=== PATIENT | male | born 2000 | race Caucasian/White ===

== ENCOUNTER 2022-02-09 13:46 | Inpatient (IN) | payer MEDICAID ==
[~2022-02-09] VITALS: Ht 162.6 cm; Wt 67.6 kg
[2022-02-09 20:45] VITALS: BP 130/79
[2022-02-09] MEDS ORDERED: HALOPERIDOL 5 MG TABLET PO PRN (21:45)
[2022-02-09] MEDS ORDERED: LORazepam 2 MG TABLET PO PRN (21:45)
[2022-02-09] MEDS ORDERED: DEXTROSE 50%-WATER 25 GM/50 ML SYRINGE IVP PRN (22:00)
[2022-02-09] MEDS ORDERED: MAGNESIUM HYDROXIDE SUSPENSION 30 ML UDCUP PO PRN (22:15)
[2022-02-09] MEDS ORDERED: ONDANSETRON HCL 4 MG TABLET PO PRN (22:15)
[2022-02-09] MEDS ORDERED: PETROLATUM,WHITE 28 GM JELLY TP PRN (22:15)
[2022-02-09] MEDS ORDERED: DOCUSATE SODIUM 100 MG CAPSULE PO PRN (22:15)
[2022-02-09] MEDS ORDERED: ACETAMINOPHEN 325 MG TABLET PO PRN (22:15)
[2022-02-09] MEDS ORDERED: MAG HYDROX/AL HYDROX/SIMETH ES 30 ML SUSPENSION UDCUP PO PRN (22:15)
[2022-02-09] MEDS ORDERED: GuaiFENesin/D-METHORPHAN [SUGAR-FREE] 200-20MG/10 ML SYRUP UDCUP PO PRN (22:15)
[2022-02-09] MEDS ORDERED: LOPERAMIDE HCL 2 MG CAPSULE PO PRN (22:15)
[2022-02-09] MEDS ORDERED: NICOTINE 14 MG/24 HOUR PATCH TD PRN (22:15)
[2022-02-09] MEDS ORDERED: ALBUTEROL SULFATE HFA 90 MCG/PUFF 8 GM INHALER IH PRN (22:15)
[2022-02-09] MEDS ORDERED: IBUPROFEN 400 MG TABLET PO PRN (22:15)
[2022-02-09] MEDS ORDERED: CloNIDine HCL 0.1 MG TABLET PO PRN (22:15)
[2022-02-09] MEDS: INSULIN LISPRO 100 UNITS/ML SQ PRN (22:36)
[2022-02-09] MEDS: ZOLPIDEM TARTRATE 10 MG TABLET PO PRN (23:52)
[2022-02-10 02:36] LABS: COVID AG,FIA SOURCE NASAL SWAB
[2022-02-10] MEDS: INSULIN LISPRO 100 UNITS/ML SQ PRN ×4 (07:05→21:40)
[2022-02-10 07:08] LABS: BASOPHILS % (AUTO) 0.7 % (0.0-2.0); EOSINOPHILS % (AUTO) 5.2 % (1.0-6.0); HEMATOCRIT 40.1 % (41-53); HEMOGLOBIN 13.9 g/dL (13.5-17.5); LYMPHOCYTES # (AUTO) 2.5 K/uL (1.0-4.8); LYMPHOCYTES % (AUTO) 35.9 % (22.0-44.0); MEAN CORPUSCULAR HEMOGLOBIN 30.5 pg (26.0-34.0); MEAN CORPUSCULAR HGB CONC 34.8 G/dL (31.0-37.0); MEAN CORPUSCULAR VOLUME 88 fL (80-100); MONOCYTES # (AUTO) 0.7 K/uL (0.1-1.0); MONOCYTES % (AUTO) 9.6 % (2.0-9.0); NEUTROPHILS # (AUTO) 3.3 K/uL (1.8-7.7); NEUTROPHILS % (AUTO) 48.6 % (40.0-70.0); PLATELET COUNT (AUTO) 294 K/uL (150-450); RED BLOOD CELL COUNT(AUTO) 4.56 MIL/uL (4.50-5.90); RED CELL DISTRIBUTION WIDTH 12.1 % (11.5-14.5)
[2022-02-10 07:16] LABS: HEMOGLOBIN A1C 5.7 % (3.8-5.6)
[2022-02-10 07:21] LABS: GLUCOMETER DEV NAME(LOC) 3E.I 2; GLUCOSE,POINT OF CARE 344 MG/DL (70-110)
[2022-02-10 07:37] LABS: ALANINE AMINOTRANSFERASE 30 U/L (12-78); ALBUMIN 3.5 g/dL (3.4-5.0); ALKALINE PHOSPHATASE 97 U/L (46-116); ANION GAP 5 mmol/L (8-16); ASPARTATE AMINOTRANSFERASE 12 U/L (15-37); BILIRUBIN,TOTAL 1.6 mg/dL (0.1-1.0); CARBON DIOXIDE 29 mmol/L (22-29); CHLORIDE 98 mmol/L (98-107); CHOL/HDL RATIO 2.8 (4.2-7.3); CHOLESTEROL 153 mg/dL (131-200); CREATININE 0.94 mg/dL (0.60-1.30); GLOMERULAR FILTR. RATE CALC > 60 mL/min (>60); GLUCOSE,RANDOM 302 mg/dL (70-110); HDL CHOLESTEROL 54 mg/dL (40-60); LDL CHOL (CALC.) 83 mg/dL (0-130); POTASSIUM 4.2 mmol/L (3.5-5.1); SODIUM SERUM 132 mmol/L (136-145); TOTAL PROTEIN, SERUM 6.9 g/dL (6.4-8.2); TRIGLYCERIDES 81 mg/dL (15-150); UREA NITROGEN, BLOOD 14 mg/dL (7-18)
[2022-02-10 08:00] VITALS: BP 98/56
[2022-02-10] MEDS: ESCITALOPRAM OXALATE 10 MG TABLET PO SCH (11:12)
[2022-02-10 12:06] LABS: GLUCOMETER DEV NAME(LOC) 3E.I 2; GLUCOSE,POINT OF CARE 302 MG/DL (70-110)
[2022-02-10 16:00] VITALS: BP 113/61
[2022-02-10 17:01] LABS: GLUCOMETER DEV NAME(LOC) 3E.I 2; GLUCOSE,POINT OF CARE 335 MG/DL (70-110)
[2022-02-10] MEDS: ZOLPIDEM TARTRATE 10 MG TABLET PO PRN (21:47)
[2022-02-10 23:36] LABS: GLUCOMETER DEV NAME(LOC) 3E.I 2; GLUCOSE,POINT OF CARE 414 MG/DL (70-110)
[2022-02-11] MEDS ORDERED: DEXTROSE 50%-WATER 25 GM/50 ML SYRINGE IVP PRN
[2022-02-11 06:36] LABS: GLUCOMETER DEV NAME(LOC) 3E.I 2; GLUCOSE,POINT OF CARE 308 MG/DL (70-110)
[2022-02-11] MEDS: INSULIN LISPRO 100 UNITS/ML SQ PRN ×4 (06:43→20:49)
[2022-02-11] MEDS: ESCITALOPRAM OXALATE 10 MG TABLET PO SCH (08:36)
[2022-02-11 09:30] VITALS: BP 108/65
[2022-02-11 11:22] LABS: GLUCOMETER DEV NAME(LOC) 3E.I 2; GLUCOSE,POINT OF CARE 270 MG/DL (70-110)
[2022-02-11 16:00] VITALS: BP 107/70
[2022-02-11 16:47] LABS: GLUCOMETER DEV NAME(LOC) 3E.I 2; GLUCOSE,POINT OF CARE 268 MG/DL (70-110)
[2022-02-11] MEDS: ZOLPIDEM TARTRATE 10 MG TABLET PO PRN (20:37)
[2022-02-11 20:56] LABS: GLUCOMETER DEV NAME(LOC) 3E.I 2; GLUCOSE,POINT OF CARE 392 MG/DL (70-110)
[2022-02-11] MEDS: INSULIN GLARGINE,HUM.REC.ANLOG 100 UNITS/ML SQ SCH (21:22)
[2022-02-12 05:36] LABS: GLUCOMETER DEV NAME(LOC) 3E.I 2; GLUCOSE,POINT OF CARE 101 MG/DL (70-110)
[2022-02-12] MEDS ORDERED: DEXTROSE 50%-WATER 25 GM/50 ML SYRINGE IVP PRN (06:45)
[2022-02-12 09:22] VITALS: BP 96/63
[2022-02-12] MEDS: ESCITALOPRAM OXALATE 10 MG TABLET PO SCH (09:23)
[2022-02-12] MEDS: INSULIN LISPRO 100 UNITS/ML SQ PRN ×3 (12:11→21:28)
[2022-02-12 12:22] LABS: GLUCOMETER DEV NAME(LOC) 3E.I 2; GLUCOSE,POINT OF CARE 356 MG/DL (70-110)
[2022-02-12 16:04] VITALS: BP 96/64
[2022-02-12 17:01] LABS: GLUCOMETER DEV NAME(LOC) 3E.I 2; GLUCOSE,POINT OF CARE 386 MG/DL (70-110)
[2022-02-12 17:04] VITALS: BP 94/68
[2022-02-12 21:21] LABS: GLUCOMETER DEV NAME(LOC) 3E.I 2; GLUCOSE,POINT OF CARE 315 MG/DL (70-110)
[2022-02-12] MEDS: INSULIN GLARGINE,HUM.REC.ANLOG 100 UNITS/ML SQ SCH (21:25)
[2022-02-12] MEDS: ZOLPIDEM TARTRATE 10 MG TABLET PO PRN (21:41)
[2022-02-13 06:06] LABS: GLUCOMETER DEV NAME(LOC) 3E.I 2; GLUCOSE,POINT OF CARE 39 MG/DL (70-110)
[2022-02-13] MEDS ORDERED: GLUCAGON,HUMAN RECOMBINANT 1 MG VIAL IM ONE (06:30)
[2022-02-13] MEDS ORDERED: GLUCAGON,HUMAN RECOMBINANT 1 MG VIAL ONE (06:35)
[2022-02-13 06:41] LABS: GLUCOMETER DEV NAME(LOC) 3E.I 2; GLUCOSE,POINT OF CARE 57 MG/DL (70-110)
[2022-02-13 06:43] LABS: COVID AG,FIA SOURCE NASAL SWAB
[2022-02-13 07:51] LABS: GLUCOMETER DEV NAME(LOC) 3E.I 2; GLUCOSE,POINT OF CARE 279 MG/DL (70-110)
[2022-02-13] MEDS: ESCITALOPRAM OXALATE 10 MG TABLET PO SCH (09:08)
[2022-02-13 09:25] VITALS: BP 96/60
[2022-02-13 11:47] LABS: GLUCOMETER DEV NAME(LOC) 3E.I 2; GLUCOSE,POINT OF CARE 135 MG/DL (70-110)
[2022-02-13] MEDS ORDERED: INSULIN LISPRO 100 UNITS/ML SQ ONE ×2 (17:15→20:30)
[2022-02-13] MEDS ORDERED: INSULIN GLARGINE,HUM.REC.ANLOG 100 UNITS/ML SQ ONE (17:15)
[2022-02-13 17:21] LABS: GLUCOMETER DEV NAME(LOC) 3E.I 2; GLUCOSE,POINT OF CARE 481 MG/DL (70-110)
[2022-02-13 20:16] LABS: GLUCOMETER DEV NAME(LOC) 3E.I 2; GLUCOSE,POINT OF CARE 446 MG/DL (70-110)
[2022-02-13] MEDS: ZOLPIDEM TARTRATE 10 MG TABLET PO PRN (20:43)
[2022-02-13] MEDS ORDERED: INSULIN GLARGINE,HUM.REC.ANLOG 100 UNITS/ML SQ SCH (21:00)
[2022-02-14 06:26] LABS: GLUCOMETER DEV NAME(LOC) 3E.C; GLUCOSE,POINT OF CARE 105 MG/DL (70-110)
[2022-02-14 09:00] VITALS: BP 96/62
[2022-02-14] MEDS: ESCITALOPRAM OXALATE 10 MG TABLET PO SCH (09:08)
[2022-02-14] MEDS ORDERED: ESCI10 PO (09:31)
[2022-02-14 12:00] LABS: GLUCOMETER DEV NAME(LOC) 3E.I 2; GLUCOSE,POINT OF CARE 69 MG/DL (70-110)
[2022-02-14] MEDS: INSULIN LISPRO 100 UNITS/ML SQ PRN (12:13)
== END 2022-02-14 11:30 | disposition home or self-care (01) | DRG 751 ==
LOC: 3EI 20:15
PROVIDERS: ADMIT Psychiatry & Neurology Child & Adolescent Psychiatry; ATTEND Psychiatry & Neurology Child & Adolescent Psychiatry
DX: F33.2 Major depressive disorder, recurrent severe without psychotic features (principal); E43 Unspecified severe protein-calorie malnutrition; E87.1 Hypo-osmolality and hyponatremia; Z20.822 Contact with and (suspected) exposure to COVID-19; E16.2 Hypoglycemia, unspecified; R73.9 Hyperglycemia, unspecified; Z68.25 Body mass index [BMI] 25.0-25.9, adult; Z79.899 Other long term (current) drug therapy
CPT/HCPCS: 80053; 80061; 82962; 83036; 84443; 85025; 87081; J1610; J1815

== ENCOUNTER 2022-09-28 15:39 | Inpatient (IN) | payer MEDICAID, OTHER ==
[~2022-09-28] VITALS: Ht 165.1 cm; Wt 74.8 kg
[~2022-09-28 15:39] MED LIST: ESCI10 PO
[2022-09-28 17:25] LABS: COVID AG,FIA SOURCE NASOPHARYNGEAL
[2022-09-28] MEDS ORDERED: HALOPERIDOL 5 MG TABLET PO PRN (19:15)
[2022-09-28] MEDS ORDERED: LORazepam 2 MG TABLET PO PRN (19:15)
[2022-09-28 19:30] LABS: BASOPHILS % (AUTO) 0.6 % (0.0-2.0); EOSINOPHILS % (AUTO) 2.3 % (1.0-6.0); HEMATOCRIT 42.8 % (41-53); HEMOGLOBIN 14.7 g/dL (13.5-17.5); LYMPHOCYTES # (AUTO) 2.1 K/uL (1.0-4.8); LYMPHOCYTES % (AUTO) 28.8 % (22.0-44.0); MEAN CORPUSCULAR HEMOGLOBIN 30.2 pg (26.0-34.0); MEAN CORPUSCULAR HGB CONC 34.3 G/dL (31.0-37.0); MEAN CORPUSCULAR VOLUME 88 fL (80-100); MONOCYTES # (AUTO) 0.5 K/uL (0.1-1.0); MONOCYTES % (AUTO) 7.2 % (2.0-9.0); NEUTROPHILS # (AUTO) 4.4 K/uL (1.8-7.7); NEUTROPHILS % (AUTO) 61.1 % (40.0-70.0); PLATELET COUNT (AUTO) 311 K/uL (150-450); RED BLOOD CELL COUNT(AUTO) 4.87 MIL/uL (4.50-5.90); RED CELL DISTRIBUTION WIDTH 12.4 % (11.5-14.5)
[2022-09-28 19:37] LABS: ANION GAP 11 mmol/L (8-16); CARBON DIOXIDE 27 mmol/L (22-29); CHLORIDE 101 mmol/L (98-107); CREATININE 0.77 mg/dL (0.60-1.30); GLOMERULAR FILTR. RATE CALC > 60 mL/min (>60); GLUCOSE,RANDOM 149 mg/dL (70-110); POTASSIUM 3.8 mmol/L (3.5-5.1); SODIUM SERUM 139 mmol/L (136-145)
[2022-09-28 19:43] LABS: ALANINE AMINOTRANSFERASE 18 U/L (12-78); ALKALINE PHOSPHATASE 90 U/L (46-116); ASPARTATE AMINOTRANSFERASE 10 U/L (15-37); BILIRUBIN,TOTAL 1.7 mg/dL (0.1-1.0); TOTAL PROTEIN, SERUM 7.5 g/dL (6.4-8.2)
[2022-09-28 23:55] VITALS: RESP 18
[2022-09-28 23:59] VITALS: RESP 18
[2022-09-29 00:46] LABS: GLUCOMETER DEV NAME(LOC) 3E.C; GLUCOSE,POINT OF CARE 325 MG/DL (70-110)
[2022-09-29] MEDS ORDERED: DEXTROSE 50%-WATER 25 GM/50 ML SYRINGE IVP PRN (02:15)
[2022-09-29] MEDS ORDERED: GLUCAGON,HUMAN RECOMBINANT 1 MG VIAL IM PRN (02:45)
[2022-09-29] MEDS: INSULIN LISPRO 100 UNITS/ML SQ SCH ×3 (07:01→17:28)
[2022-09-29] MEDS: INSULIN LISPRO 100 UNITS/ML SQ PRN ×4 (07:02→21:03)
[2022-09-29 07:21] LABS: GLUCOMETER DEV NAME(LOC) 3E.C; GLUCOSE,POINT OF CARE 170 MG/DL (70-110)
[2022-09-29 08:46] LABS: GLUCOMETER DEV NAME(LOC) 3E.C; GLUCOSE,POINT OF CARE 92 MG/DL (70-110)
[2022-09-29] MEDS ORDERED: DOCUSATE SODIUM 100 MG CAPSULE PO PRN (09:00)
[2022-09-29] MEDS ORDERED: LOPERAMIDE HCL 2 MG CAPSULE PO PRN (09:00)
[2022-09-29] MEDS ORDERED: MAGNESIUM HYDROXIDE SUSPENSION 30 ML UDCUP PO PRN (09:00)
[2022-09-29] MEDS ORDERED: BENZOCAINE/MENTHOL LOZENGE PO PRN (09:00)
[2022-09-29] MEDS ORDERED: ALBUTEROL SULFATE HFA 90 MCG/PUFF 8 GM INHALER IH PRN (09:00)
[2022-09-29] MEDS ORDERED: IBUPROFEN 600 MG TABLET PO PRN (09:00)
[2022-09-29] MEDS ORDERED: CloNIDine HCL 0.1 MG TABLET PO PRN (09:00)
[2022-09-29] MEDS ORDERED: ACETAMINOPHEN 325 MG TABLET PO PRN (09:00)
[2022-09-29] MEDS ORDERED: PETROLATUM,WHITE 28 GM JELLY TP PRN (09:00)
[2022-09-29] MEDS ORDERED: ONDANSETRON HCL 4 MG TABLET PO PRN (09:00)
[2022-09-29] MEDS ORDERED: MAG HYDROX/AL HYDROX/SIMETH ES 30 ML SUSPENSION UDCUP PO PRN (09:00)
[2022-09-29] MEDS ORDERED: BACITRACIN 28 GM OINTMENT TP PRN (09:00)
[2022-09-29] MEDS ORDERED: OMEPRAZOLE 20 MG CAPSULE PO PRN (09:00)
[2022-09-29 09:21] VITALS: BP 115/56; PULSE 72; RESP 18; TEMP 98.5
[2022-09-29 11:31] LABS: GLUCOMETER DEV NAME(LOC) 3E.C; GLUCOSE,POINT OF CARE 312 MG/DL (70-110)
[2022-09-29] MEDS: CITALOPRAM HYDROBROMIDE 20 MG TABLET PO SCH (12:35)
[2022-09-29 17:36] LABS: GLUCOMETER DEV NAME(LOC) 3E.C; GLUCOSE,POINT OF CARE 323 MG/DL (70-110)
[2022-09-29 20:29] VITALS: BP 155/66; PULSE 73; RESP 19; TEMP 98.2
[2022-09-29 20:47] LABS: GLUCOMETER DEV NAME(LOC) 3E.C; GLUCOSE,POINT OF CARE 233 MG/DL (70-110)
[2022-09-29] MEDS: INSULIN GLARGINE,HUM.REC.ANLOG 100 UNITS/ML SQ SCH (21:00)
[2022-09-29] MEDS: ZOLPIDEM TARTRATE 10 MG TABLET PO PRN (23:29)
[2022-09-30] MEDS: INSULIN LISPRO 100 UNITS/ML SQ SCH ×3 (06:35→17:34)
[2022-09-30] MEDS: INSULIN LISPRO 100 UNITS/ML SQ PRN ×4 (06:38→22:20)
[2022-09-30 07:06] LABS: GLUCOMETER DEV NAME(LOC) 3E.C; GLUCOSE,POINT OF CARE 243 MG/DL (70-110)
[2022-09-30] MEDS: CITALOPRAM HYDROBROMIDE 20 MG TABLET PO SCH (09:20)
[2022-09-30 10:05] VITALS: BP 120/87; PULSE 94; RESP 18; TEMP 96.8
[2022-09-30 10:54] VITALS: BP 132/74; PULSE 87; RESP 19; TEMP 97.6
[2022-09-30 11:51] LABS: GLUCOMETER DEV NAME(LOC) 3E.C; GLUCOSE,POINT OF CARE 332 MG/DL (70-110)
[2022-09-30 16:36] LABS: GLUCOMETER DEV NAME(LOC) 3E.C; GLUCOSE,POINT OF CARE 253 MG/DL (70-110)
[2022-09-30 20:16] LABS: GLUCOMETER DEV NAME(LOC) 3E.C; GLUCOSE,POINT OF CARE 264 MG/DL (70-110)
[2022-09-30 20:56] VITALS: BP 121/72; PULSE 82; RESP 18; TEMP 97.1
[2022-09-30 21:56] VITALS: RESP 18
[2022-09-30] MEDS: ZOLPIDEM TARTRATE 10 MG TABLET PO PRN (22:17)
[2022-09-30] MEDS: INSULIN GLARGINE,HUM.REC.ANLOG 100 UNITS/ML SQ SCH (22:21)
[2022-09-30 23:16] LABS: GLUCOMETER DEV NAME(LOC) 3E.C; GLUCOSE,POINT OF CARE 210 MG/DL (70-110)
[2022-10-01 06:02] LABS: GLUCOMETER DEV NAME(LOC) 3E.C; GLUCOSE,POINT OF CARE 309 MG/DL (70-110)
[2022-10-01] MEDS: INSULIN LISPRO 100 UNITS/ML SQ SCH ×3 (06:35→17:15)
[2022-10-01] MEDS: INSULIN LISPRO 100 UNITS/ML SQ PRN ×4 (06:36→21:05)
[2022-10-01] MEDS: CITALOPRAM HYDROBROMIDE 20 MG TABLET PO SCH (08:17)
[2022-10-01 08:43] VITALS: BP 108/60; PULSE 94; RESP 18; TEMP 97.8
[2022-10-01 11:35] LABS: GLUCOMETER DEV NAME(LOC) 3E.C; GLUCOSE,POINT OF CARE 287 MG/DL (70-110)
[2022-10-01 17:26] LABS: GLUCOMETER DEV NAME(LOC) 3E.C; GLUCOSE,POINT OF CARE 239 MG/DL (70-110)
[2022-10-01 20:14] VITALS: BP 119/70; PULSE 82; RESP 18; TEMP 97.8
[2022-10-01 20:52] LABS: GLUCOMETER DEV NAME(LOC) 3E.C; GLUCOSE,POINT OF CARE 190 MG/DL (70-110)
[2022-10-01] MEDS: INSULIN GLARGINE,HUM.REC.ANLOG 100 UNITS/ML SQ SCH (21:03)
[2022-10-01] MEDS: ZOLPIDEM TARTRATE 10 MG TABLET PO PRN (23:05)
[2022-10-02] MEDS: INSULIN LISPRO 100 UNITS/ML SQ SCH ×2 (06:35→11:48)
[2022-10-02] MEDS: INSULIN LISPRO 100 UNITS/ML SQ PRN ×2 (06:36→11:49)
[2022-10-02 07:16] LABS: GLUCOMETER DEV NAME(LOC) 3E.C; GLUCOSE,POINT OF CARE 278 MG/DL (70-110)
[2022-10-02 09:07] VITALS: BP 107/62; PULSE 68; RESP 18; TEMP 96.5
[2022-10-02] MEDS: CITALOPRAM HYDROBROMIDE 20 MG TABLET PO SCH (10:04)
[2022-10-02] MEDS ORDERED: INSU100V SQ (11:12)
[2022-10-02] MEDS ORDERED: CITA-144 PO (11:12)
[2022-10-02] MEDS ORDERED: INSLAN SQ (11:12)
[2022-10-02 11:35] LABS: GLUCOMETER DEV NAME(LOC) 3E.C; GLUCOSE,POINT OF CARE 196 MG/DL (70-110)
== END 2022-10-02 14:20 | disposition home or self-care (01) | DRG 753 ==
LOC: EMS 15:40 → 3EI 19:57
PROVIDERS: ADMIT Psychiatry & Neurology Psychiatry; ATTEND Psychiatry & Neurology Psychiatry
DX: F31.9 Bipolar disorder, unspecified (principal); E10.9 Type 1 diabetes mellitus without complications; F41.9 Anxiety disorder, unspecified; G47.00 Insomnia, unspecified; Z20.822 Contact with and (suspected) exposure to COVID-19; K59.00 Constipation, unspecified; Z91.199 Patient's noncompliance with other medical treatment and regimen due to unspecified reason
CPT/HCPCS: 80053; 82962; 85025; 87081; 99285; G0480; J1815